=== PATIENT | female | born 1970 | race Caucasian/White ===

== ENCOUNTER 2017-08-11 16:26 | Emergency (ER) | payer BC ==
[~2017-08-11] VITALS: Ht 152.4 cm; Wt 65.0 kg
[~2017-08-11 16:26] MED LIST: VIGA0.5D LEFT EYE; XANA0.5T PO; ZOLP10TA3 PO
[2017-08-11 16:29] VITALS: BP 164/79; PULSE 57; RESP 18; TEMP 98.1; O2SAT 99
[2017-08-11] MEDS ORDERED: TOPI1TAB36 PO (16:41)
[2017-08-11] MEDS ORDERED: LORA-373 PO (16:41)
[2017-08-11] MEDS ORDERED: DIAZEPAM 5 MG TAB PO ONE (17:15)
[2017-08-11] MEDS ORDERED: KETOROLAC TROMETHAMINE 30 MG/ML (IVP) VIAL IV PUSH ONE (17:15)
[2017-08-11 17:27] LABS: POTASSIUM 3.6 MEQ/L (3.5-5.1)
[2017-08-11 17:31] LABS: BICARBONATE 24.2 MEQ/L (21.0-32.0)
--- NOTE | 2017-08-11 17:32 | PD ---
HPI Chief Complaint: left arm pain Time Seen by Provider: 16:39 Travel History International Travel<30 days: No Contact w/Intl Traveler<30days: No Traveled to known affect area: No History of Present Illness HPI 46yo F with no significant PMH presents to the ED with c/o left arm pain for a few days. States it was intermittent but more constant for the last 2 days. Pain is from left medial scapula to left humerus and forearm. Has some tingling in tips of fingers. Denies any numbness, weakness, trauma, fever, neck pain, chest pain, sob, n/v, abdominal pain. Pain is achy and radiates down arm. Also adducting the left arm helps with pain. PFSH Past Medical History Asthma: Yes Anxiety: Yes Diminished Hearing: No Headaches: Yes Immunizations Current: Yes Tetanus Vaccination: < 5 Years Influenza Vaccination: No ?: Not LMP: UTERINE ABLATION : 3 Para: 2 Tubal Ligation: Yes Past Surgical History Abdominal Surgery: Yes (GASTRIC BYPASS) Cholecystectomy: Yes Genitourinary Surgery: Yes (BLADDER LIFT) Social History Alcohol Use: Yes (OCCASIONAL) Tobacco Use: No Substance Use: No Allergies-Medications (Allergen,Severity, Reaction): Coded Allergies: mushroom (Unverified Allergy, Severe, Anaphylaxis, 08/11/17) Reported Meds & Prescriptions Reported Meds & Active Scripts Active Reported Topiramate 50 Mg Tab 50 Mg PO HS Lorazepam 0.5 Mg Tab 0.5 Mg PO BID PRN Review of Systems Except as stated in HPI: all other systems reviewed are Neg Physical Exam Narrative GENERAL: 46yo F in mild distress. SKIN: Focused skin assessment warm/dry. HEAD: Atraumatic. Normocephalic. EYES: Pupils equal and round. No scleral icterus. No injection or drainage. ENT: No nasal bleeding or discharge. Mucous membranes pink and moist. NECK: No midline ttp. No reproducible arm pain with neck extension and rotation. CARDIOVASCULAR: Regular rate and rhythm. No murmur appreciated. RESPIRATORY: No accessory muscle use. Clear to auscultation. Breath sounds equal bilaterally. GASTROINTESTINAL: Abdomen soft, non-tender, nondistended. MUSCULOSKELETAL: LUE: FROM left shoulder, elbow and wrist. Sensation intact. Distal pulses intact. +TTP left medial scapula. NEUROLOGICAL: Awake and alert. No obvious cranial nerve deficits. Motor grossly within normal limits. Normal speech. PSYCHIATRIC: Appropriate mood and affect; insight and judgment normal. Data Data Last Documented VS Vital Signs Date Time Temp Pulse Resp B/P (MAP) Pulse Ox O2 Delivery O2 Flow Rate FiO2 08/11/17 16:42 61 100 Room Air 08/11/17 16:29 98.1 18 164/79 (107) Orders Orders Shoulder, Limited(2vws) (08/11/17 ) Creatine Kinase (Cpk) (08/11/17 16:53) Basic Metabolic Panel (Bmp) (08/11/17 16:53) Diazepam (Valium) (08/11/17 17:15) Ketorolac Inj (Toradol Inj) (08/11/17 17:15) Electrocardiogram (08/11/17 ) Labs Laboratory Tests Test 08/11/17 17:00 Blood Urea Nitrogen 17 MG/DL Creatinine 0.67 MG/DL Random Glucose 101 MG/DL Calcium Level 8.7 MG/DL Sodium Level 138 MEQ/L Potassium Level 3.6 MEQ/L Chloride Level 106 MEQ/L Carbon Dioxide Level 24.2 MEQ/L Anion Gap 8 MEQ/L Estimat Glomerular Filtration Rate 94 ML/MIN Total Creatine Kinase 46 U/L [facility] Medical Decision Making Medical Screen Exam Complete: Yes Emergency Medical Condition: Yes Interpretation(s) EKG: Sinus bradycardia at 52bpm. Normal axis. No ST segment elevation or depression. Differential Diagnosis Musculoskeletal pain vs. rhabdomyolysis vs. arthritis vs. tendonitis Narrative Course 46yo F with left arm pain for a few days. Seems very musculoskeletal on exam. BMP unremarkable. CPK normal. Xray left shoulder unremarkable. Pt given valium and toradol with improvement of pain. Return precautions given. Diagnosis Primary Impression: Left arm pain Patient Instructions: General Instructions Departure Forms: Tests/Procedures Additional Instructions: Please follow up with your primary care physician in 2-3 days. Return to the ED if symptoms worsen. Med/Other Pt SpecificInfo: Prescription(s) given Scripts Acetaminophen (Tylenol) 325 Mg Tab 650 MG PO Q6H Y for PAIN SCALE 1 TO 4/COUGH, #20 TAB 0 Refills Prov: ArmendarizJoann 08/11/17 Disposition: 01 DISCHARGE HOME Condition: Stable Joann Armendariz DO Aug 11, 2017 17:32
--- NOTE | 2017-08-11 17:46 | RADRPT ---
EXAM DATE/TIME: 08/11/2017 17:31 [facility] COMPARISON: No previous studies available for comparison. INDICATIONS : No known injury. Patient started with pain yesterday in left shoulder. MEDICAL HISTORY : None. SURGICAL HISTORY : None. ENCOUNTER: Initial ACUITY: 1 day PAIN SCORE: 9/10 LOCATION: Left Shoulder FINDINGS: Two view examination of the left shoulder demonstrates no evidence of fracture or dislocation. The g lenohumeral and acromioclavicular joints are maintained. Bony mineralization is normal. CONCLUSION: Unremarkable limited examination of the left shoulder. Robert Francois MD on August 11, 2017 at 17:45 Board Certified Radiologist. This report was verified electronically.
[2017-08-11 19:21] VITALS: BP 147/80
[2017-08-11] MEDS ORDERED: TYLE325T PO (19:22)
--- NOTE | 2017-08-12 13:10 | EKG ---
Date Performed: 08/11/2017 Time Performed: 17:39:31 PTAGE: 46 years EKG: SINUS BRADYCARDIA LOW QRS VOLTAGE IN PRECORDIAL LEADS BORDERLINE ECG PREVIOUS TRACING : 12/11/2013 02.36 Compared to prior tracing no significant change DOCTOR: Cory Garza Interpretating Date/Time 08/12/2017 13:09:21
== END 2017-08-11 19:48 | disposition home or self-care (01) ==
LOC: PHED 16:26
DX: M79.602 Pain in left arm (principal)
CPT/HCPCS: 73030; 80048; 82550; 93005; 96374; 99285; J1885